=== PATIENT | male | born 1980 ===

== ENCOUNTER 2023-03-14 14:49 | Emergency (ER) | payer SELFPAY ==
[2023-03-14] MEDS ORDERED: HYDROCODONE/APAP 5/325 MG TAB ONE (15:26)
[2023-03-14] MEDS ORDERED: IBUPROFEN 400 MG TAB ONE (15:26)
--- NOTE | 2023-03-14 15:44 | RAD REPORT ---
EXAM DESCRIPTION: RAD - Foot Left 3 View - 03/14/2023 3:34 pm CLINICAL HISTORY: second toe pain COMPARISON: No comparisons FINDINGS/IMPRESSION: No acute fracture. No malalignment. Calcaneal spurring.
--- NOTE | 2023-03-14 16:07 | ER ---
Nurse's Notes [facility] Name: Markos Fine Age: 43 yrs Sex: Male : 11/25/1979 Arrival Date: 03/14/2023 Time: 14:49 Bed 12 Private MD: Diagnosis: Cellulitis of left toe-second toe Presentation: 03/14 14:57 Chief complaint: Patient states: Left second toe pain/swelling, first noted yesterday, nj1 worse today. Hx of diabetes. Denies injury. Coronavirus screen: Vaccine status: Patient reports receiving the 2nd dose of the covid vaccine. Ebola Screen: Patient denies travel to an Ebola-affected area in the 21 days before illness onset. Initial Sepsis Screen: Does the patient meet any 2 criteria? No. Patient's initial sepsis screen is negative. Does the patient have a suspected source of infection? No. Patient's initial sepsis screen is negative. Risk Assessment: Do you want to hurt yourself or someone else? Patient reports no desire to harm self or others. Onset of symptoms was March 13, 2023. 14:57 Method Of Arrival: Ambulatory [facility] 14:57 Acuity: BELINDA 3 nj1 Triage Assessment: 15:04 General: Appears in no apparent distress. comfortable, Behavior is calm, cooperative, nj1 appropriate for age. Pain: Complains of pain in left foot Pain currently is 8 out of 10 on a pain scale. 15:05 Neuro: Level of Consciousness is awake, alert, obeys commands, Oriented to person, nj1 place, time, situation. Cardiovascular: Patient's skin is warm and dry. Respiratory: Airway is patent Respiratory effort is even, unlabored. Derm: Redness/swelling noted to left second toe. Historical: - Allergies: 15:01 No Known Allergies; nj1 - PMHx: 15:01 Diabetes mellitus; Hypertensive disorder; nj1 - PSHx: 15:01 Umbilical hernia repair; nj1 - Immunization history:: Client reports receiving the 2nd dose of the Covid vaccine. - Social history:: Smoking status: Patient reports the use of cigarette tobacco products, denies chronic smoking, but will smoke occasionally. Screenin:04 [facility] ED Fall Risk Assessment (Adult) History of falling in the last 3 months, nj1 including since admission No falls in past 3 months (0 pts) Confusion or Disorientation No (0 pts) Intoxicated or Sedated No (0 pts) Impaired Gait No (0 pts) Mobility Assist Device Used No (0 pt) Altered Elimination No (0 pt) Score/Fall Risk Level 0 - 2 = Low Risk Oriented to surroundings, Maintained a safe environment, Hourly rounding (assess needs \T\ fall precautionary measures) done. Abuse screen: Denies threats or abuse. Denies injuries from another. Nutritional screening: No deficits noted. Tuberculosis screening: No symptoms or risk factors identified. Assessment: 16:37 Reassessment: Patient appears in no apparent distress at this time. Patient is alert, nj1 oriented x 3, equal unlabored respirations, skin warm/dry/pink. Vital Signs: 14:57 BP 164 / 98; Pulse 81; Resp 18; Temp 98.2(TE); Pulse Ox 99% ; Weight 113.85 kg (M); nj1 Height 6 ft. 0 in. ; Pain 8/10; 14:57 Body Mass Index 34.04 (113.85 kg, 185 cm) [facility] 14:57 Pain Scale: Adult [facility] ED Course: 14:52 Patient arrived in ED. im 14:53 [facility] Washington PA is PHCP. cp 14:53 Marko Rodriguez MD is Attending Physician. cp 15:01 Triage completed. nj1 15:01 Arm band placed on left wrist. nj1 15:06 Patient has correct armband on for positive identification. Bed in low position. Call [facility] light in reach. 15:16 Clarissa Cortez, RN is Primary Nurse. ap3 15:21 No provider procedures requiring assistance completed. ap3 15:36 XRAY Foot LEFT 3 View In Process Unspecified. EDMS 16:38 Patient did not have IV access during this emergency room visit. nj1 Administered Medications: 15:20 Drug: HYDROcodone-acetaminophen PO 5 mg-325 mg 1 tabs Route: PO; ap3 16:38 Follow up: Response: No adverse reaction nj1 15:21 Drug: Ibuprofen PO 800 mg Route: PO; ap3 16:38 Follow up: Response: No adverse reaction nj1 Medication: 16:37 VIS not applicable for this client. nj1 Outcome: 16:06 Discharge ordered by . cp 16:37 Discharged to home ambulatory. nj1 16:37 Condition: stable 16:37 Discharge instructions given to patient, Instructed on discharge instructions, follow up and referral plans. medication usage, Demonstrated understanding of instructions, follow-up care, medications, Prescriptions given X 2. 16:38 Patient left the ED. nj1 Signatures: Dispatcher [employer] EDMS [facility] Washington PA PA cp Prokisch, Amanda RN RN ap3 Alicja Perry RN RN nj1 Shara Fabian Corrections: (The following items were deleted from the chart) 15:04 14:57 BP 164 / 98; Pulse 81bpm; Resp 18bpm; Pulse Ox 99%; Temp 98.2F Temporal; Height 6 nj1 ft. 0 in.; Pain 8/10, Adult; nj1 15:06 15:04 Pain: Complains of pain in left foot Pain nj1 nj1
--- NOTE | 2023-03-14 16:07 | EDPHYS ---
Physician Documentation [facility] Name: Markos Fine Age: 43 yrs Sex: Male : 11/25/1979 Arrival Date: 03/14/2023 Time: 14:49 Bed 12 Private MD: ED Physician Marko Rodriguez HPI: 03/14 15:15 This 43 yrs old Male presents to ER via Ambulatory with complaints of Toe Pain. cp 15:15 The patient presents with pain, that is acute, swelling, tenderness. The complaints cp affect the left second toe. Context: resulted from an unknown cause. 15:15 Onset: The symptoms/episode began/occurred yesterday. cp 15:15 Associated signs and symptoms: The patient has no apparent associated signs or cp symptoms. Treatment prior to arrival includes: no previous treatment. Historical: - Allergies: 15:01 No Known Allergies; nj1 - PMHx: 15:01 Diabetes mellitus; Hypertensive disorder; nj1 - PSHx: 15:01 Umbilical hernia repair; nj1 - Immunization history:: Client reports receiving the 2nd dose of the Covid vaccine. - Social history:: Smoking status: Patient reports the use of cigarette tobacco products, denies chronic smoking, but will smoke occasionally. ROS: 15:20 MS/extremity: Positive for erythema, pain, swelling, tenderness, of the left second cp toe, Negative for injury. 15:20 Constitutional: Negative for body aches, chills, fever. cp 15:20 Cardiovascular: Negative for chest pain. 15:20 Respiratory: Negative for cough, shortness of breath, wheezing. 15:20 Abdomen/GI: Negative for abdominal pain, nausea, vomiting, and diarrhea. 15:20 All other systems are negative. Exam: 15:25 Constitutional: The patient appears in no acute distress, alert, awake, non-toxic, well cp developed, well nourished. 15:25 Head/Face: Normocephalic, atraumatic. cp 15:25 Chest/axilla: Inspection: normal. 15:25 Cardiovascular: Rate: normal, Pulses: Pulses are 2+ in left dorsalis pedis artery. Edema: is not appreciated. 15:25 Respiratory: the patient does not display signs of respiratory distress, Respirations: normal, no use of accessory muscles, no retractions, labored breathing, is not present. 15:25 Back: pain, is absent, ROM is normal. 15:25 Musculoskeletal/extremity: Extremities: grossly normal except: noted in the left foot: mild swelling and erythema noted left second toe with superficial wound medial side of proximal toe. normal cap refill and sensation intact. Vital Signs: 14:57 BP 164 / 98; Pulse 81; Resp 18; Temp 98.2(TE); Pulse Ox 99% ; Weight 113.85 kg (M); nj1 Height 6 ft. 0 in. ; Pain 8/10; 14:57 Body Mass Index 34.04 (113.85 kg, 185 cm) nj1 14:57 Pain Scale: Adult nj1 MDM: 15:09 Patient medically screened. cp 16:05 Data reviewed: vital signs, nurses notes, radiologic studies, plain films. cp 16:05 Differential diagnosis: closed fracture, contusion, cellulitis. Care significantly cp affected by the following chronic conditions: Diabetes. Counseling: I had a detailed discussion with the patient and/or guardian regarding: the historical points, exam findings, and any diagnostic results supporting the discharge/admit diagnosis, radiology results. 03/14 14:59 Order name: XRAY Foot LEFT 3 View; Complete Time: 16:00 03/14 16:05 Interpretation: Reviewed report. cp Administered Medications: 15:20 Drug: HYDROcodone-acetaminophen PO 5 mg-325 mg 1 tabs Route: PO; ap3 16:38 Follow up: Response: No adverse reaction nj1 15:21 Drug: Ibuprofen PO 800 mg Route: PO; ap3 16:38 Follow up: Response: No adverse reaction nj1 Disposition: 16:41 Co-signature as Attending Physician, Marko Rodriguez MD I reviewed the patient's care rn provided by the Advanced Practice Provider and agree with the diagnosis and treatment plan. Disposition Summary: 03/14/23 16:06 Discharge Ordered Location: Home cp Problem: new cp Symptoms: have improved cp Condition: Stable cp Diagnosis - Cellulitis of left toe - second toe cp Followup: cp - With: Private Physician - When: 2 - 3 days - Reason: Worsening of condition Discharge Instructions: - Discharge Summary Sheet cp - Cellulitis, Adult cp Forms: - Medication Reconciliation Form cp - Thank You Letter cp - Antibiotic Education cp - Prescription Opioid Use cp - Work release form jl7 Prescriptions: - Ibuprofen 800 mg Oral Tablet - take 1 tablet by ORAL route every 8 hours As needed take with food; 30 tablet; cp Refills: 0, Product Selection Permitted - Bactrim DS 800-160 mg Oral Tablet - take 1 tablet by ORAL route every 12 hours for 10 days; 20 tablet; Refills: 0, cp Product Selection Permitted Signatures: Dispatcher [employer] EDMS Marko Rodriguez MD MD rn [facility] PA PA cp Prokisch, Amanda, RN RN ap3 Alicja Perry RN RN nj1 Corrections: (The following items were deleted from the chart) 15:20 15:19 This 43 yrs old Male presents to ER via Ambulatory with complaints of Toe Pain. cpcp
[2023-03-14 17:00] VITALS: BP 164/98; TEMP 98.2; O2SAT 99
== END 2023-03-14 16:38 | disposition home or self-care (01) ==
LOC: EDBD → ER 14:49
DX: L03.032 Cellulitis of left toe (principal)
CPT/HCPCS: 99283

== ENCOUNTER 2023-03-15 23:14 | Emergency (ER) | payer SELFPAY ==
[2023-03-16] MEDS ORDERED: CEFTRIAXONE 1000 MG/VIAL ONE (00:02)
[2023-03-16] MEDS ORDERED: WATER FOR INJ,STERILE 10 ML ONE (00:02)
[2023-03-16] MEDS ORDERED: KETOROLAC 30 MG/ML INJ ONE (00:02)
[2023-03-16] MEDS ORDERED: SMZ./TMP. 800/160 MG TABLET ONE (00:02)
--- NOTE | 2023-03-16 00:08 | ER ---
Nurse's Notes [facility] Name: Markos Fine Age: 42 yrs Sex: Male : 1980 Arrival Date: 03/15/2023 Time: 23:14 Bed 13 Private MD: Diagnosis: Cellulitis of left toe-left second Presentation: 03/15 23:23 Chief complaint: Patient states: My toe was swollen and i came here yesterday, they kd3 gave me a prescription for pain and and antibiotic but i have no money to get those. The pain is worse and i am a diabetic. Coronavirus screen: Vaccine status: Patient reports receiving the 2nd dose of the covid vaccine. Ebola Screen: No symptoms or risks identified at this time. Initial Sepsis Screen: Does the patient meet any 2 criteria? No. Patient's initial sepsis screen is negative. Does the patient have a suspected source of infection? No. Patient's initial sepsis screen is negative. Risk Assessment: Do you want to hurt yourself or someone else? Patient reports no desire to harm self or others. Onset of symptoms was March 15, 2023. 23:23 Method Of Arrival: Ambulatory kd3 23:23 Acuity: BELINDA 3 kd3 Triage Assessment: 23:25 General: Appears uncomfortable, Behavior is calm, cooperative. Pain: Complains of pain kd3 in left second toe and Left second toenail. Historical: - Allergies: 23:25 No Known Allergies; kd3 - PMHx: 23:25 diabetes mellitus; Hypertensive disorder; kd3 - PSHx: 23:25 umbilical hernia repair; kd3 - Immunization history:: Adult Immunizations up to date. - Social history:: Smoking status: cigar. Screenin/31 00:07 [facility] ED Fall Risk Assessment (Adult) History of falling in the last 3 months, aa9 including since admission No falls in past 3 months (0 pts) Confusion or Disorientation No (0 pts) Intoxicated or Sedated No (0 pts) Impaired Gait No (0 pts) Mobility Assist Device Used No (0 pt) Altered Elimination No (0 pt) Score/Fall Risk Level 0 - 2 = Low Risk Oriented to surroundings, Maintained a safe environment, Educated pt \\T\\ family on fall prevention, incl call for assistance when getting out of bed. Abuse screen: Denies threats or abuse. Denies injuries from another. Nutritional screening: No deficits noted. Tuberculosis screening: No symptoms or risk factors identified. Assessment: 03/15 23:49 Reassessment: Patient appears in no apparent distress at this time. Pham Chance RN at aa9 bedside. 03/16 00:06 Reassessment: Patient and/or family updated on plan of care and expected duration. Pain aa9 level reassessed. Patient is alert, oriented x 3, equal unlabored respirations, skin warm/dry/pink. pt states, " I am driving myself home tonight." Morphine IM will be held due to providers orders. 00:14 Reassessment: Patient appears in no apparent distress at this time. Patient and/or aa9 family updated on plan of care and expected duration. Pain level reassessed. Patient is alert, oriented x 3, equal unlabored respirations, skin warm/dry/pink. pt understands antibiotic use, states, "I will get these filled, I know I need to get it together, I don't want to lose my toe.". Vital Signs: 03/15 23:25 BP 156 / 94; Pulse 81; Resp 19; Temp 98.4(TE); Pulse Ox 94% ; Weight 113.4 kg; Height 6 kd3 ft. 0 in. ; 03/16 00:15 BP 149 / 89; Pulse 79; Resp 18; Temp 98.5; Pulse Ox 100% on R/A; aa9 03/15 23:25 Body Mass Index 33.13 (113.40 kg, 185 cm) kd3 ED Course: 03/15 23:16 Patient arrived in ED. ja2 23:17 [facility] Washington PA is PHCP. cp 23:17 Hubert Noguera MD is Attending Physician. cp 23:25 Triage completed. kd3 23:26 Arm band placed on left wrist. kd3 23:28 Tammy Dasilva, EARLE is Primary Nurse. aa9 03/16 00:00 Bed in low position. Side rails up X 1. aa9 00:00 Pulse ox on. NIBP on. Diet: Patient given juice. Tolerated well. aa9 00:14 No provider procedures requiring assistance completed. Patient did not have IV access aa9 during this emergency room visit. Administered Medications: 00:06 Drug: Rocephin (cefTRIAXone) IM 1 grams Route: IM; Site: right deltoid; aa9 00:06 Drug: Trimethoprim-Sulfamethoxazole PO (160 mg-800 mg (DS) 2 tablet Route: PO; aa9 00:06 Drug: Ketorolac IM 30 mg Route: IM; Site: left deltoid; aa9 00:07 Not Given (Physician Discretion): morphine IM 6 mg IM once; if patient has ride home aa9 Medication: 00:14 VIS not applicable for this client. aa9 Outcome: 00:07 Discharge ordered by . maurice 00:14 Discharged to home ambulatory. aa9 00:14 Condition: stable 00:14 Discharge instructions given to patient, Instructed on discharge instructions, follow up and referral plans. medication usage, Demonstrated understanding of instructions, follow-up care, medications, Prescriptions given X 1. 00:16 Patient left the ED. aa9 Signatures: [facility] PA PA cp Alexander, Jessica ja2 Doucette, Kyli, RN RN kd3 Tammy Dasilva RN RN aa9
--- NOTE | 2023-03-16 00:08 | EDPHYS ---
Physician Documentation [facility] Name: Markos Fine Age: 42 yrs Sex: Male : 1980 Arrival Date: 03/15/2023 Time: 23:14 Bed 13 Private MD: ED Physician Hubert Noguera HPI: 03/15 23:50 This 42 yrs old Male presents to ER via Ambulatory with complaints of Toe Pain. cp 23:50 The patient presents with pain, that is acute. The complaints affect the left second cp toe and left foot. 23:50 Associated signs and symptoms: The patient has no apparent associated signs or cp symptoms. The patient has been recently seen at the [facility] Emergency Department, yesterday, for similar complaints was given a prescription for antibiotics, patient reports he has not filled RX due to not having any money and will not get pain until tomorrow. Historical: - Allergies: 23:25 No Known Allergies; kd3 - PMHx: 23:25 diabetes mellitus; Hypertensive disorder; kd3 - PSHx: 23:25 umbilical hernia repair; kd3 - Immunization history:: Adult Immunizations up to date. - Social history:: Smoking status: cigar. ROS: 23:55 Constitutional: Negative for body aches, chills, fever, poor PO intake. cp 23:55 MS/extremity: Positive for erythema, pain, swelling, tenderness, of the left second toe.cp Exam: 23:59 Constitutional: The patient appears in no acute distress, alert, awake, non-toxic, well cp developed, well nourished, uncomfortable. 23:59 Head/Face: Normocephalic, atraumatic. cp 23:59 Cardiovascular: Rate: normal, Rhythm: regular. 23:59 Respiratory: the patient does not display signs of respiratory distress. 23:59 Back: pain, is absent, ROM is normal. 23:59 Musculoskeletal/extremity: Extremities: grossly normal except: noted in the left second toe: pain, swelling, tenderness, noted mild erythema dorsum of left distal foot, Pulses: noted to be 2+ in the left dorsalis pedis artery, the left foot Sensation intact. Vital Signs: 23:25 BP 156 / 94; Pulse 81; Resp 19; Temp 98.4(TE); Pulse Ox 94% ; Weight 113.4 kg; Height 6 kd3 ft. 0 in. ; 03/16 00:15 BP 149 / 89; Pulse 79; Resp 18; Temp 98.5; Pulse Ox 100% on R/A; aa9 03/15 23:25 Body Mass Index 33.13 (113.40 kg, 185 cm) kd3 MDM: 03/15 23:29 Patient medically screened. cp 03/16 00:07 Data reviewed: vital signs, nurses notes. cp 00:07 Differential diagnosis: cellulitis, abscess, osteomyelitis, sepsis. Test considered but cp Not performed: Labs: CBC, BMP. Care significantly affected by the following chronic conditions: Diabetes, Hypertension. Counseling: I had a detailed discussion with the patient and/or guardian regarding: the historical points, exam findings, and any diagnostic results supporting the discharge/admit diagnosis, need to take prescribed antibiotics as patient admits he has not filled RX for antibiotics given at previous visit. Administered Medications: 00:06 Drug: Rocephin (cefTRIAXone) IM 1 grams Route: IM; Site: right deltoid; aa9 00:06 Drug: Trimethoprim-Sulfamethoxazole PO (160 mg-800 mg (DS) 2 tablet Route: PO; aa9 00:06 Drug: Ketorolac IM 30 mg Route: IM; Site: left deltoid; aa9 00:07 Not Given (Physician Discretion): morphine IM 6 mg IM once; if patient has ride home aa9 Disposition Summary: 03/16/23 00:07 Discharge Ordered Location: Home cp Problem: an ongoing problem cp Symptoms: have improved cp Condition: Stable cp Diagnosis - Cellulitis of left toe - left second cp Followup: cp - With: Private Physician - When: 2 - 3 days - Reason: Recheck today's complaints Discharge Instructions: - Discharge Summary Sheet cp - Cellulitis, Adult cp Forms: - Medication Reconciliation Form cp - Thank You Letter cp - Antibiotic Education cp - Prescription Opioid Use cp Prescriptions: - Cephalexin 500 mg Oral Capsule - take 1 capsule by ORAL route every 6 hours for 10 days; 40 capsule; Refills: 0, cp Product Selection Permitted Addendum: 03/17/2023 02:36 Co-signature as Attending Physician, Hubert Noguera MD I agree with the assessment s p4 and plan of care. I reviewed the patient's care provided by the Advanced Practice Provider and agree with the diagnosis and treatment plan. Signatures: [facility] PA PA cp Doucette, Kyli, RN RN kd3 Tammy Dasilva RN RN aa9 Hubert Noguera MD MD sp4
[2023-03-16 00:43] VITALS: BP 149/89; TEMP 98.5; O2SAT 100
== END 2023-03-16 00:16 | disposition home or self-care (01) ==
LOC: ER 23:14
DX: L03.032 Cellulitis of left toe (principal)
CPT/HCPCS: 96372; 99284